=== PATIENT | male | born 1940 | race African-American/Black ===

== ENCOUNTER 2017-11-22 21:10 | Emergency (ER) | payer OTHER ==
[~2017-11-22] VITALS: Ht 180.3 cm; Wt 68.2 kg
[~2017-11-22 21:10] MED LIST: HYDROCODON-ACE1 EAC7 PO
[2017-11-22 21:16] VITALS: Ht 180.3 cm; Wt 68.2 kg
[2017-11-22 22:49] LABS: BASOPHILS 0.1 % (0-2); EOSINOPHILS 0 % (0-7); HEMATOCRIT 46.3 % (42.0-54.0); HEMOGLOBIN 15.7 g/dL (13.5-17.5); IMMATURE GRANULOCYTES 0.2 % (0-5); LYMPHOCYTES 6.1 % (15-50); MCH 30.7 pg (26.0-34.0); MCHC 33.9 g/dL (31.0-37.0); MCV 90.4 fL (80.0-100.0); MEAN PLATELET VOLUME 11.3 fL (7.4-10.4); NEUTROPHILS 86.6 % (40-80); PLATELET COUNT 276 10x3/uL (130-400); RBC 5.12 10x6/uL (4.20-6.10); RDW 14.6 % (11.5-14.5); WBC 12.3 10x3/uL (4.8-10.8)
[2017-11-22 22:55] LABS: ALBUMIN 3.7 g/dL (3.4-5.0); ANION GAP 9.2 mmol/L (8-16); BILIRUBIN - TOTAL 0.64 mg/dL (0.2-1.3); CALCIUM 9.3 mg/dL (8.5-10.1); CARBON DIOXIDE 35.6 mmol/L (21.0-32.0); CREATININE - SERUM 1.2 mg/dL (0.6-1.3); POTASSIUM - SERUM 3.8 mmol/L (3.5-5.1); PROTEIN - SERUM 8.1 g/dL (6.4-8.2)
[2017-11-23 02:06] LABS: APPEARANCE CLOUDY (CLEAR); BILIRUBIN NEGATIVE (NEGATIVE); COLOR YELLOW (YELLOW); GLUCOSE NEGATIVE (NEGATIVE); KETONE NEGATIVE (NEGATIVE); NITRITE NEGATIVE (NEGATIVE); PROTEIN 2+ mg/dL (NEGATIVE); SPECIFIC GRAVITY 1.015 (1.005-1.020); UROBILINOGEN NORMAL (NORMAL)
[2017-11-23 02:08] LABS: BACTERIA MANY /hpf (NONE SEEN); EPITHELIAL CELLS 0-5 /hpf (0-5); RED CELLS - URINE 0-5 /hpf (0-5)
[2017-11-23 05:29] VITALS: BP 148/71
== END 2017-11-23 06:43 ==
LOC: D.ER 21:10
PROVIDERS: Family Medicine
DX: R10.9 Unspecified abdominal pain (principal); R11.2 Nausea with vomiting, unspecified; K56.609 Unspecified intestinal obstruction, unspecified as to partial versus complete obstruction

== ENCOUNTER 2018-07-02 11:49 | Emergency (ER) | payer OTHER ==
[~2018-07-02] VITALS: Ht 180.3 cm; Wt 75.0 kg
[2018-07-02 11:54] VITALS: Ht 180.3 cm; Wt 75.0 kg
[2018-07-02 13:26] LABS: APTT 27.2 SECONDS (22.8-39.4); INR 1.01 (0.85-1.17); PROTIME 12.8 SECONDS (11.6-15.0)
[2018-07-02 13:27] LABS: BASOPHILS 0.6 % (0-2); EOSINOPHILS 1.6 % (0-7); HEMATOCRIT 40.3 % (42.0-54.0); HEMOGLOBIN 13.4 g/dL (13.5-17.5); IMMATURE GRANULOCYTES 0.1 % (0-5); LYMPHOCYTES 17.8 % (15-50); MCH 29.3 pg (26.0-34.0); MCHC 33.3 g/dL (31.0-37.0); MEAN PLATELET VOLUME 10.4 fL (7.4-10.4); MONOCYTES 8.2 % (2-11); NEUTROPHILS 71.7 % (40-80); PLATELET COUNT 264 10x3/uL (130-400); RBC 4.58 10x6/uL (4.20-6.10); RDW 15.4 % (11.5-14.5); WBC 7.9 10x3/uL (4.8-10.8)
[2018-07-02 13:38] LABS: ALBUMIN 3.3 g/dL (3.4-5.0); ALKALINE PHOSPHATASE 81 U/L (46-116); ALT (SGPT) 18 U/L (10-68); BILIRUBIN - TOTAL 0.26 mg/dL (0.2-1.3); CALC OSMOLALITY 281 mosm/kg (275-300); CALCIUM 8.3 mg/dL (8.5-10.1); CARBON DIOXIDE 30.4 mmol/L (21.0-32.0); CHLORIDE - SERUM 105 mmol/L (98-107); CREATININE - SERUM 0.8 mg/dL (0.6-1.3); GLUCOSE 93 mg/dL (74-106); POTASSIUM - SERUM 3.9 mmol/L (3.5-5.1); PROTEIN - SERUM 7.2 g/dL (6.4-8.2); SODIUM 142 mmol/L (136-145); UREA NITROGEN 11 mg/dL (7-18); eGFR NON AFRICAN AMERICAN > 90 mL/min (90-120)
[2018-07-02 14:08] LABS: CREATINE KINASE 293 UL (21-232)
[2018-07-02 14:10] LABS: CKMB 1.9 U/L (0.0-3.6)
[2018-07-02] MEDS ORDERED: NAPROSYN500 MG PO (14:34)
[2018-07-02] MEDS ORDERED: CYCLOBENZAPRINE10 MG PO (14:34)
[2018-07-02 14:52] VITALS: BP 123/63
== END 2018-07-02 14:54 | disposition home or self-care (01) ==
LOC: D.ER 11:49
PROVIDERS: Family Medicine
DX: S16.1XXA Strain of muscle, fascia and tendon at neck level, initial encounter (principal); W01.0XXA Fall on same level from slipping, tripping and stumbling without subsequent striking against object, initial encounter; Y93.89 Activity, other specified; Y92.022 Bathroom in mobile home as the place of occurrence of the external cause; S09.90XA Unspecified injury of head, initial encounter; S40.012A Contusion of left shoulder, initial encounter; S46.911A Strain of unspecified muscle, fascia and tendon at shoulder and upper arm level, right arm, initial encounter; J43.9 Emphysema, unspecified; Z99.81 Dependence on supplemental oxygen

== ENCOUNTER 2018-10-29 18:25 | Emergency (ER) | payer OTHER ==
[~2018-10-29] VITALS: Ht 180.3 cm; Wt 72.7 kg
[~2018-10-29 18:25] MED LIST changes: +CYCLOBENZAPRINE10 MG PO; +NAPROSYN500 MG PO
[2018-10-29 18:42] VITALS: Ht 180.3 cm; Wt 72.7 kg
[2018-10-29] MEDS ORDERED: CELEBREX 100 M100 MG PO (19:49)
[2018-10-29 21:10] VITALS: BP 170/86
== END 2018-10-29 21:10 | disposition home or self-care (01) ==
LOC: D.ER 18:25
DX: S40.012A Contusion of left shoulder, initial encounter (principal); S20.212A Contusion of left front wall of thorax, initial encounter; W18.11XA Fall from or off toilet without subsequent striking against object, initial encounter; Y93.89 Activity, other specified; Y92.89 Other specified places as the place of occurrence of the external cause

== ENCOUNTER 2018-11-15 13:24 | Emergency (ER) | payer OTHER ==
[~2018-11-15] VITALS: Ht 180.3 cm; Wt 68.2 kg
[~2018-11-15 13:24] MED LIST changes: +CELEBREX 100 M100 MG PO
[2018-11-15 14:03] VITALS: Ht 180.3 cm; Wt 68.2 kg
[2018-11-15] MEDS ORDERED: IBUPROFEN800 MG PO (15:01)
[2018-11-15 15:35] VITALS: BP 158/72
== END 2018-11-15 15:25 | disposition home or self-care (01) ==
LOC: D.ER 13:24
DX: S43.402A Unspecified sprain of left shoulder joint, initial encounter (principal); X58.XXXA Exposure to other specified factors, initial encounter; Y93.89 Activity, other specified; Y92.89 Other specified places as the place of occurrence of the external cause; M19.012 Primary osteoarthritis, left shoulder

== ENCOUNTER 2020-08-04 12:55 | Inpatient (IN) | payer OTHER ==
[~2020-08-04] VITALS: Ht 180.3 cm; Wt 56.4 kg
[~2020-08-04 12:55] MED LIST changes: +IBUPROFEN800 MG PO
[2020-08-04 13:25] LABS: BASOPHILS 0.1 % (0-2); EOSINOPHILS 0.9 % (0-7); HEMATOCRIT 31.3 % (42.0-54.0); HEMOGLOBIN 9.8 g/dL (13.5-17.5); IMMATURE GRANULOCYTES 0.5 % (0-5); LYMPHOCYTE ABS# 1.05 10x3/uL (1.32-3.57); LYMPHOCYTES 6.8 % (15-50); MCH 25.7 pg (26.0-34.0); MCHC 31.3 g/dL (31.0-37.0); MCV 82.2 fL (80.0-100.0); MEAN PLATELET VOLUME 9.2 fL (7.4-10.4); MONOCYTES 6.3 % (2-11); NEUTROPHIL ABS# 13.14 10x3/uL (1.78-5.38); NEUTROPHILS 85.4 % (40-80); RBC 3.81 10x6/uL (4.20-6.10); RDW 15.8 % (11.5-14.5); WBC 15.4 10x3/uL (4.8-10.8)
[2020-08-04 13:26] LABS: APTT 25.6 SECONDS (22.8-39.4); INR 1.15 (0.85-1.17); PLATELET COUNT 433 10x3/uL (130-400); PROTIME 13.6 SECONDS (11.6-15.0)
[2020-08-04 13:30] LABS: CALC OSMOLALITY 280 mosm/kg (275-300); CALCIUM 8.1 mg/dL (8.5-10.1); CARBON DIOXIDE 31.7 mmol/L (21.0-32.0); CHLORIDE - SERUM 106 mmol/L (98-107); GLUCOSE 89 mg/dL (74-106); POTASSIUM - SERUM 3.4 mmol/L (3.5-5.1); SODIUM 142 mmol/L (136-145); UREA NITROGEN 11 mg/dL (7-18); eGFR NON AFRICAN AMERICAN 76 mL/min (90-120)
[2020-08-04 13:45] LABS: ALKALINE PHOSPHATASE 83 U/L (30-120); ALT (SGPT) 21 U/L (10-68); BILIRUBIN - TOTAL 0.19 mg/dL (0.2-1.3); CKMB 0.4 U/L (0.0-3.6); CREATINE KINASE 55 UL (21-232); MAGNESIUM - SERUM 1.4 mg/dL (1.8-2.4); PROTEIN - SERUM 6.3 g/dL (6.4-8.2)
[2020-08-04 13:46] LABS: TROPONIN-I < 0.017 ng/mL (0.000-0.060)
[2020-08-04 14:54] VITALS: BP 166/94
--- NOTE | 2020-08-04 16:06 | NUR ---
PT ARIVED VIA WHEELCHIAR TO ROOM.
[2020-08-04 17:03] VITALS: BP 166/94; BMI 19.5
--- NOTE | 2020-08-04 17:18 | NUR ---
PT AWAKE AND ORIENTED, VERY BIG LAGOON. POOR HISTORIAN. SISTER AT BEDSIDE. PT HAD CATHETER WITH 3 PRONGED SYSTEM. UPON INSPECTION, NOTED CATHETER WAS POORLY CLEANED, PENIS HAD NOTED YEAST LIKE DRAINAGE WITH FOWEL ODOR. PT STATES THAT IT WAS PLACED 8 DAYS AGO AT [facility] DUE TO NUMEROUS CLCOTS IN HIS BLADDER AND THAT HE WAS TOLD BY THE DR, SISTER CONFIRMED, THAT HE COULD TAKE IT OUT IN A WEEK. BECAUSE OF THIS INFORMATION AND THE CONDITION OF THE SCANLON, REMOVED SCANLON CATHETER PER NURSING PROTOCOL. PT TO CALL WHEN HE URINATES. UP WITH ASSISTANCE, NOTED WEAKNESS. I/V TO LH 20G SL. LL +1 EDEMA. PT STATES HIS FEET HURT WHEN HE WALKS.
[2020-08-04 19:00] VITALS: BP 167/96
[2020-08-04 20:01] LABS: CKMB 0.4 U/L (0.0-3.6); CREATINE KINASE 59 UL (21-232); TROPONIN-I < 0.017 ng/mL (0.000-0.060)
[2020-08-04] MEDS ORDERED: ALBUTEROL SULF8.5 GM (22:29)
[2020-08-04] MEDS ORDERED: DOXYCYCLINE HY100 M2 PO (22:29)
[2020-08-04] MEDS ORDERED: FLOMAX0.4 MG PO (22:30)
[2020-08-04] MEDS ORDERED: OMEPRAZOLE40 MG PO (22:30)
[2020-08-04] MEDS ORDERED: PREDNISONE20 MG (22:31)
[2020-08-05] VITALS (7 sets, daily range): BP systolic 128–164; BP diastolic 66–99
[2020-08-05 02:34] LABS: CKMB 0.4 U/L (0.0-3.6); CREATINE KINASE 62 UL (21-232)
[2020-08-05 02:36] LABS: TROPONIN-I < 0.017 ng/mL (0.000-0.060)
[2020-08-05 07:58] LABS: BASOPHILS 0.1 % (0-2); EOSINOPHILS 0.6 % (0-7); HEMATOCRIT 34.8 % (42.0-54.0); HEMOGLOBIN 10.7 g/dL (13.5-17.5); IMMATURE GRANULOCYTES 0.3 % (0-5); LYMPHOCYTE ABS# 0.92 10x3/uL (1.32-3.57); LYMPHOCYTES 5.3 % (15-50); MCH 25.3 pg (26.0-34.0); MCHC 30.7 g/dL (31.0-37.0); MCV 82.3 fL (80.0-100.0); MEAN PLATELET VOLUME 9.4 fL (7.4-10.4); MONOCYTES 4.7 % (2-11); NEUTROPHIL ABS# 15.37 10x3/uL (1.78-5.38); PLATELET COUNT 481 10x3/uL (130-400); RBC 4.23 10x6/uL (4.20-6.10); RDW 15.9 % (11.5-14.5); WBC 17.3 10x3/uL (4.8-10.8)
[2020-08-05 08:02] LABS: ALBUMIN 2.1 g/dL (3.4-5.0); ALKALINE PHOSPHATASE 90 U/L (30-120); ALT (SGPT) 22 U/L (10-68); BILIRUBIN - TOTAL 0.43 mg/dL (0.2-1.3); C-REACTIVE PROTEIN 7.3 mg/dL (0.0-0.9); CALC OSMOLALITY 281 mosm/kg (275-300); CALCIUM 8.2 mg/dL (8.5-10.1); CARBON DIOXIDE 32.6 mmol/L (21.0-32.0); CHLORIDE - SERUM 106 mmol/L (98-107); CREATININE - SERUM 0.9 mg/dL (0.6-1.3); GLUCOSE 89 mg/dL (74-106); POTASSIUM - SERUM 3.5 mmol/L (3.5-5.1); PROTEIN - SERUM 6.5 g/dL (6.4-8.2); SODIUM 142 mmol/L (136-145); UREA NITROGEN 13 mg/dL (7-18); eGFR NON AFRICAN AMERICAN 86 mL/min (90-120)
--- NOTE | 2020-08-05 08:18 | NUR ---
PT RECEIVED AWAKE AND ALERT IN BED. NPO FOR CARDIO CONSULT.
[2020-08-05 08:19] LABS: CKMB 0.4 U/L (0.0-3.6); CREATINE KINASE 57 UL (21-232)
[2020-08-05 08:21] LABS: TROPONIN-I < 0.017 ng/mL (0.000-0.060)
--- NOTE | 2020-08-05 14:39 | NUR ---
UNABLE TO PLACE SCANLON CATHETER AT THIS TIME. COUDEE TIP ORDERED AND WILL TRY AGAIN. PT STATES HE HAS BEEN ABLE TO PEE SOME SO WILL TRY AGAIN.
[2020-08-05 14:54] LABS: BILIRUBIN NEGATIVE (NEGATIVE); KETONE NEGATIVE (NEGATIVE); NITRITE NEGATIVE (NEGATIVE); UROBILINOGEN NORMAL mg/dL (< 2)
[2020-08-05 14:57] LABS: WHITE CELLS - URINE >50 HPF (0-1)
[2020-08-05 14:58] LABS: BACTERIA MODERATE HPF (NONE SEEN); SQUAMOUS EPITHELIAL 0-5 HPF (0-4)
--- NOTE | 2020-08-05 15:17 | NUR ---
PT DID VOID IN CUP FOR UA, STATES HAS VOIDED COUPLE TIMES IN TOILET NOW. URINAL AT BEDSIDE SO VOLUME MAY BE MEASURED.
--- NOTE | 2020-08-05 16:06 | NUR ---
SCANLON PLACED WITH COUDEE TIP. NOT MUCH OUTPUT BUT VERY CLOUDY. UA SENT. ORDERS FOR ROCEPHIN RECEIVED. STATLOCK IN PLACE.
--- NOTE | 2020-08-05 19:33 | NUR ---
RECIEVED UP IN BED WITH EYES OPEN AND TV ON. ALERT AND ORIENTED X4. UP WITH ASSIST. SPEECH IS GARBLED AND HARD TO UNDERSTAND. IV TO LT FA WITH NS AT [facility]. COUDEE CATH IN PLACE WITH NOTHING IN BAG AT THIS TIME. TELEMETRY IN PLACE. DENIES ANY NEEDS AT THIS TIME.
--- NOTE | 2020-08-05 23:14 | NUR ---
C/O CP. V/S ALL WNL. TROPONIN WNL X3 TODAY. HUGO LAMAR IN TO SEE TODAY. CALLED DR. ANTHONY AND N.O. FOR NORCO 5 Q 4 HRS FOR PAIN. HE IS ASLEEP AT THIS TIME AND WILL HOLD NORC AT THIS TIME. NO S/S OF DISTRESS OBSERVED.
--- NOTE | 2020-08-06 00:21 | NUR ---
C/O CHEST PAIN EARLIER. NOW C/O BLADDER PAIN. NORCO GIVEN PER ORDERS.
--- NOTE | 2020-08-06 06:14 | NUR ---
URINE COMMING AROUND CATH. CHECKED POSITIONING AND URINE STARTED FLOWING. CLOUDY YELLOW URINE IN DRAINAGE TUBE. STATES HE FEELS BETTER. WILL REPORT TO ONCOMMING.
[2020-08-06 07:00] VITALS: BP 189/114
[2020-08-06 12:00] VITALS: BP 147/71
--- NOTE | 2020-08-06 13:58 | EC ---
PATIENT:YESSENIA MCCOLLUM III DATE OF SERVICE: 08/05/20 SEX: M MEDICAL RECORD: [id number] DATE OF : 42 LOCATION:D.M2 D.211 AGE OF PATIENT: 80 ADMISSION DATE: 08/05/20 REFERRING PHYSICIAN: INTERPRETING PHYSICIAN: CLOVER FORD MD ECHOCARDIOGRAM REPORT ECHO CHARGES 4 ECHO COMPLETE Date: 08/05/20 CLINICAL DIAGNOSIS: CP ECHOCARDIOGRAPHIC MEASUREMENTS (adult normal given) AC root (d.<3.7cm) 3.4 cm LV Septum d (<1.2 cm> 1.2 cm Valve Excursion 1.4 cm LV Septum (systole) 1.4 cm Left Atria (s.<4.0cm> 3.6 cm LVPW d(<1.2cm) 1.0 cm RV (d.<2.3cm) 3.2 cm LVPW (sytole) 1.3 cm LV diastole(<5.6CM) 3.9 cm MV E-F(>70mm/sec) cm LV systole 3.2 cm LVOT Diameter 2.0 cm MV exc.(>10mm) 1.2 cm Est.ejection fraction (50-75%) % DOPPLER: LVIT cm/sec A 90 cm/sec E 79 cm/sec LA cm/sec RVSP 21 mmHg LVOT 87 cm/sec AOP1/2T m/s Asc. Ao cm/sec RVOT 53 cm/sec RA cm/sec PA 79 cm/sec AV Gradient Peak mmHg AV Mean mmHg AV Area cm MV Gradient Peak 3.4 mmHg MV Mean 1.6 mmHg MV Area cm COMMENTS: Folder Machine Operator: Sonia RAMOS Mold Injector: 3 Dr. Chavez TAPE# Pericardial Effusion N DATE OF SERVICE: Adequate 2D, color flow imaging, spectral Doppler, and M-Mode. FINDINGS: No LVH. LV internal dimensions are normal. Wall motion is normal. EF is greater than or equal to 55%. Aortic valve is tricuspid. No evidence of stenosis by Doppler interrogation. Left atrium is normal. Mitral valve shows no prolapse. Trace MR. Right side is grossly normal. Trace TR. TRANSINT:[id number] Voice Confirmation ID: [id number] DOCUMENT ID: [id number] ECHOCARDIOGRAM REPORT [id number] YESSENIA MCCOLLUM III CLOVER FORD MD at 1358 CC: [id number] DICTATION DATE: 08/06/2028 GLASS CURVATURE GAUGER: 08/06/20 1311 ADM IN [facility] [address] [id number]
[2020-08-06 15:00] VITALS: BP 159/66
[2020-08-06 17:20] LABS: BASOPHILS 0.2 % (0-2); EOSINOPHILS 3.2 % (0-7); HEMATOCRIT 30.1 % (42.0-54.0); HEMOGLOBIN 9.2 g/dL (13.5-17.5); IMMATURE GRANULOCYTES 0.2 % (0-5); LYMPHOCYTE ABS# 1.13 10x3/uL (1.32-3.57); LYMPHOCYTES 6.3 % (15-50); MCH 25.6 pg (26.0-34.0); MCHC 30.6 g/dL (31.0-37.0); MCV 83.6 fL (80.0-100.0); MEAN PLATELET VOLUME 9.8 fL (7.4-10.4); MONOCYTES 5.4 % (2-11); NEUTROPHILS 84.7 % (40-80); PLATELET COUNT 467 10x3/uL (130-400); RDW 16.4 % (11.5-14.5); WBC 17.9 10x3/uL (4.8-10.8)
[2020-08-06 17:29] LABS: ALBUMIN 2.1 g/dL (3.4-5.0); BILIRUBIN - TOTAL 0.1 mg/dL (0.2-1.3); CALCIUM 8.3 mg/dL (8.5-10.1); CARBON DIOXIDE 31.8 mmol/L (21.0-32.0); CREATININE - SERUM 1.1 mg/dL (0.6-1.3); POTASSIUM - SERUM 3.8 mmol/L (3.5-5.1); PROTEIN - SERUM 6.1 g/dL (6.4-8.2)
--- NOTE | 2020-08-06 18:06 | NUR ---
BLADDER SCAN SHOWED 766 AROUND 1200. TITLE I ASSISTANT INFORMED. ORDERED Q4 IRRIGATIONS. IRRIGATION WAS CHALLENGING BUT FINALLY THICK WHITE URINE CAME OUT. URINE CULTURE SENT TO LAB.
[2020-08-06 19:00] VITALS: BP 151/63
[2020-08-07] VITALS (7 sets, daily range): BP systolic 132–161; BP diastolic 69–92
--- NOTE | 2020-08-07 08:16 | NUR ---
PT A/O X4. VSS. RR E/U. PT COMPLAINED OF PAIN IN LOWER ABDOMEN AND EPIGASTRIC AREA. UPON ASSESMENT THE EPIGASTRIC QUADRENT WAS DISTENDED AND FIRM WITH ABSENT BOWEL SOUNDS. HUGO CARCAMO NOTIFIED. PELVIC AND ABD. CT/CONSTRAST ORDERED. PT WASN'T SURE IF HE HAD IODINE ALLERGY. PAST HISTORY STATES HE DID. CT DONE W/O CONTRAST. PT GIVEN MORPHINE FOR PAIN. VSS STABLE. TOLERATED WELL. RADIOLOGIST CALLED TO NOTIFY CONCERNING PT'S CT RESULTS. RESULTS CALLED TO HUGO CARCAMO. ORDERES FOR NPO AND SURGERY CONSULT ESTABLISHED AT THIS TIME. ORDER PUT IN COMPUTER AND HOUSEHOLD APPLIANCE REPAIRER CALLED DAMON CALLED CONSULT. SEE CT FOR RESULTS. PT COMFORTABLE AT THIS TIME. WILL CONTINUE TO MONITOR.
[2020-08-07 09:31] LABS: ALBUMIN 2.2 g/dL (3.4-5.0); ANION GAP 8.2 mmol/L (8-16); BILIRUBIN - TOTAL 0.19 mg/dL (0.2-1.3); CALCIUM 8.8 mg/dL (8.5-10.1); CARBON DIOXIDE 30.8 mmol/L (21.0-32.0); CREATININE - SERUM 1.2 mg/dL (0.6-1.3); PROTEIN - SERUM 6.5 g/dL (6.4-8.2)
[2020-08-07 09:45] LABS: HEMATOCRIT 34.4 % (42.0-54.0); HEMOGLOBIN 10.4 g/dL (13.5-17.5); LYMPHOCYTE ABS# 0.83 10x3/uL (1.32-3.57); MCH 25.6 pg (26.0-34.0); MCHC 30.2 g/dL (31.0-37.0); MCV 84.7 fL (80.0-100.0); MEAN PLATELET VOLUME 9.8 fL (7.4-10.4); PLATELET COUNT 599 10x3/uL (130-400); RBC 4.06 10x6/uL (4.20-6.10); RDW 16.3 % (11.5-14.5); WBC 21.1 10x3/uL (4.8-10.8)
[2020-08-07 12:24] LABS: EOSINOPHILS 1 % (0-7); LYMPHOCYTES 7 % (15-50); MONOCYTES 8 % (2-11); NEUTROPHILS 82 % (40-80); PLATELET ESTIMATE INCREASED; ROULEAUX OCC
--- NOTE | 2020-08-07 13:59 | NUR ---
Bladder scan done with 567cc residule. WILL CONT. TO MONITOR.
--- NOTE | 2020-08-07 16:52 | NUR ---
OT NOTE: NURSING CLEARING PT FOR THERAPY. PT COMPLETE SUPINE TO SIT WITH CGA-MIN A. PT COMPLETED EOB SITTING WITH JOSH SOCKS WITH MOD A. PT COMPLETED SIT TO STAND WITH CGA-MIN A. PT COMPLETED FACE AND HAND HYGIENE WITH SETUP. [phone] THANK YOU,LETA ETIENNE
[2020-08-08 03:00] VITALS: BP 152/94
[2020-08-08 06:57] LABS: BASOPHILS 0.1 % (0-2); EOSINOPHILS 0 % (0-7); HEMATOCRIT 37.6 % (42.0-54.0); HEMOGLOBIN 11.2 g/dL (13.5-17.5); IMMATURE GRANULOCYTES 0.4 % (0-5); LYMPHOCYTE ABS# 0.59 10x3/uL (1.32-3.57); LYMPHOCYTES 2.5 % (15-50); MCHC 29.8 g/dL (31.0-37.0); MCV 87.2 fL (80.0-100.0); MONOCYTES 2.3 % (2-11); NEUTROPHIL ABS# 22.04 10x3/uL (1.78-5.38); NEUTROPHILS 94.7 % (40-80); PLATELET COUNT 548 10x3/uL (130-400); RBC 4.31 10x6/uL (4.20-6.10); RDW 16.6 % (11.5-14.5); WBC 23.3 10x3/uL (4.8-10.8)
[2020-08-08 07:08] LABS: ALBUMIN 2.4 g/dL (3.4-5.0); ANION GAP 13.5 mmol/L (8-16); BILIRUBIN - TOTAL 0.25 mg/dL (0.2-1.3); CALCIUM 9.3 mg/dL (8.5-10.1); CARBON DIOXIDE 30.2 mmol/L (21.0-32.0); PROTEIN - SERUM 6.8 g/dL (6.4-8.2)
[2020-08-08 07:09] LABS: CREATININE - SERUM 1.6 mg/dL (0.6-1.3); POTASSIUM - SERUM 4.7 mmol/L (3.5-5.1)
[2020-08-08 07:56] VITALS: BP 154/83
[2020-08-08 11:23] VITALS: BP 172/92
[2020-08-08 13:13] VITALS: Ht 180.3 cm; Wt 56.4 kg
--- NOTE | 2020-08-08 15:13 | NUR ---
GT BELT, O2 AT 2, PATIENT MIN ASST TO GET UP TO BEDSIDE AND TO STAND. PATIENT WALKED 40 FEET WITH MIN-MOD ASST WITH WALKER. PATIENT IS WEAK AND UNSTEADY AT TIMES.
[2020-08-08 15:18] VITALS: BP 160/88
--- NOTE | 2020-08-08 15:24 | NUR ---
OT NOTE: PT COMPLETED SUPINE TO SIT WITH CGA. PT COMPLETED ADL MOB WITH CGA USING RW. PT COMPLETED FACE AND HAND HYGIENE WITH SETUP AT EOB. PT COMPLETED STATIC STANDING WITH CGA. PT SITTING AT EOB WITH SPV. PT STATED HIS L PATELLA IS WEAK. PT COMPLETED JOSH SOCK WITH MIN A. [phone] THANK YOU,LETA ETIENNE
--- NOTE | 2020-08-08 19:30 | NUR ---
PT IN BED, EYES CLOSED, RESP EVEN AND UNLABORED, NO DISTRESS NOTED, CL IN REACH,SR UP X 2.
[2020-08-08 19:49] VITALS: BP 144/81
[2020-08-09 00:27] VITALS: BP 137/62
--- NOTE | 2020-08-09 03:19 | NUR ---
I have reviewed this patient and I concur with the Shift Assessment completed by the Licensed Practical Nurse today this shift.
[2020-08-09 03:56] VITALS: BP 135/75
[2020-08-09 05:04] LABS: BASOPHILS 0.1 % (0-2); EOSINOPHILS 0 % (0-7); HEMATOCRIT 33.7 % (42.0-54.0); HEMOGLOBIN 10.1 g/dL (13.5-17.5); IMMATURE GRANULOCYTES 0.3 % (0-5); LYMPHOCYTE ABS# 0.84 10x3/uL (1.32-3.57); LYMPHOCYTES 4.3 % (15-50); MCH 25.3 pg (26.0-34.0); MCV 84.5 fL (80.0-100.0); MEAN PLATELET VOLUME 10.5 fL (7.4-10.4); MONOCYTES 4.2 % (2-11); NEUTROPHIL ABS# 17.63 10x3/uL (1.78-5.38); NEUTROPHILS 91.1 % (40-80); PLATELET COUNT 726 10x3/uL (130-400); RBC 3.99 10x6/uL (4.20-6.10); RDW 16.6 % (11.5-14.5); WBC 19.4 10x3/uL (4.8-10.8)
[2020-08-09 05:19] LABS: ALBUMIN 2.4 g/dL (3.4-5.0); ANION GAP 9.5 mmol/L (8-16); BILIRUBIN - TOTAL 0.19 mg/dL (0.2-1.3); CALCIUM 8.9 mg/dL (8.5-10.1); CARBON DIOXIDE 31.7 mmol/L (21.0-32.0); CREATININE - SERUM 1.4 mg/dL (0.6-1.3); POTASSIUM - SERUM 4.2 mmol/L (3.5-5.1); PROTEIN - SERUM 6.9 g/dL (6.4-8.2)
--- NOTE | 2020-08-09 05:55 | NUR ---
PT REFUSED TO BE PREOPED AT THIS TIME, PT REFUSES MEDICATION FOR PRE OP, PT STATES HE HAS NOT GIVEN CONSENT FOR SURGERY, PT DAUGHTER GIVE CONSENT OVER THE PHONE DUE TO PT HAVING COGNATIVE LIMITATIONS. WITNESSED BY ESPERANZA CURRY RN AT THIS TIME.
--- NOTE | 2020-08-09 06:34 | NUR ---
SURGERY NOTIFED THAT PT IS REFUSING TO GO TO SURGERY AT THIS TIME.
--- NOTE | 2020-08-09 06:57 | NUR ---
PT WALKING DOWN WALLWAY WITH DAUGHTER STATED "I AM LEAVING" PT STATED "I WILL COME BACK IN A FEW DAYS" TELEMETRY LEFT ON BED, PT ALLOWED NURSES TO REMOVE PIV, CATHETER TIP INTACT. DR. MARIE IN [facility], ATTEMPTED TO EDUCATED PT. PT STILL DECIDED TO LEAVE AND DECLINDED SURGERY, PTS DAUGHTER SIGNED AMA ON PTS BEHALF. PTS DAUGHTER STATED ALL BELONGINGS WITH THEM. PT DECLINED W/C OR ASSITANCE. PT LEFT WITH ANGELINE SCANLON.
== END 2020-08-09 06:50 | disposition left against medical advice (07) | DRG 374 ==
LOC: D.ER 12:55 → D.M2 15:29 → OBSVTIME 15:29 → D.M2 08-05 15:28
PROVIDERS: Emergency Medicine; Family Medicine; ADMIT Family Medicine; ATTEND Family Medicine
DX: C18.0 Malignant neoplasm of cecum (principal); E43 Unspecified severe protein-calorie malnutrition; C78.7 Secondary malignant neoplasm of liver and intrahepatic bile duct; J90 Pleural effusion, not elsewhere classified; Z68.1 Body mass index [BMI] 19.9 or less, adult; R07.89 Other chest pain; J43.9 Emphysema, unspecified; I16.0 Hypertensive urgency; E87.6 Hypokalemia; Z72.0 Tobacco use; N32.3 Diverticulum of bladder

== ENCOUNTER 2020-08-11 11:09 | Emergency (ER) | payer OTHER ==
[~2020-08-11] VITALS: Ht 180.3 cm; Wt 59.1 kg
[~2020-08-11 11:09] MED LIST changes: +ALBUTEROL SULF8.5 GM; +DOXYCYCLINE HY100 M2 PO; +FLOMAX0.4 MG PO; +OMEPRAZOLE40 MG PO; +PREDNISONE20 MG
[2020-08-11 11:12] VITALS: Ht 180.3 cm; Wt 59.1 kg
[2020-08-11 12:00] LABS: BILIRUBIN NEGATIVE (NEGATIVE); KETONE NEGATIVE (NEGATIVE); NITRITE NEGATIVE (NEGATIVE); UROBILINOGEN NORMAL mg/dL (< 2)
[2020-08-11 12:02] LABS: WHITE CELLS - URINE >50 HPF (0-1)
[2020-08-11 12:03] LABS: SQUAMOUS EPITHELIAL OCC HPF (0-4)
[2020-08-11 12:04] LABS: BACTERIA FEW HPF (NONE SEEN)
[2020-08-11 13:17] LABS: BASOPHILS 0.1 % (0-2); EOSINOPHILS 0.3 % (0-7); HEMATOCRIT 33.7 % (42.0-54.0); HEMOGLOBIN 10.1 g/dL (13.5-17.5); IMMATURE GRANULOCYTES 0.3 % (0-5); LYMPHOCYTE ABS# 1.12 10x3/uL (1.32-3.57); LYMPHOCYTES 6.4 % (15-50); MCH 25.6 pg (26.0-34.0); MCV 85.3 fL (80.0-100.0); MEAN PLATELET VOLUME 10.4 fL (7.4-10.4); MONOCYTES 3.6 % (2-11); NEUTROPHIL ABS# 15.55 10x3/uL (1.78-5.38); NEUTROPHILS 89.3 % (40-80); PLATELET COUNT 603 10x3/uL (130-400); RBC 3.95 10x6/uL (4.20-6.10); WBC 17.4 10x3/uL (4.8-10.8)
[2020-08-11 13:33] LABS: CALCIUM 9.3 mg/dL (8.5-10.1); CARBON DIOXIDE 36.2 mmol/L (21.0-32.0); CREATININE - SERUM 1.3 mg/dL (0.6-1.3); POTASSIUM - SERUM 4.2 mmol/L (3.5-5.1)
[2020-08-11 13:38] LABS: ALBUMIN 2.6 g/dL (3.4-5.0); BILIRUBIN - TOTAL 0.37 mg/dL (0.2-1.3); PROTEIN - SERUM 6.8 g/dL (6.4-8.2)
[2020-08-11 14:27] LABS: APTT 25.5 SECONDS (22.8-39.4); INR 1.11 (0.85-1.17); PROTIME 13.2 SECONDS (11.6-15.0)
[2020-08-11 18:04] VITALS: BP 152/84
== END 2020-08-11 18:04 | disposition other institution (70) ==
LOC: D.ER 11:09
PROVIDERS: Family Medicine
DX: R33.9 Retention of urine, unspecified (principal); N39.0 Urinary tract infection, site not specified